=== PATIENT | female | born 1995 | race Two or more races ===

== ENCOUNTER 2020-08-24 16:45 | Emergency (ER) | payer OTHER ==
[~2020-08-24] VITALS: Ht 154.9 cm; Wt 66.9 kg
[2020-08-24] MEDS ORDERED: SODIUM CHLORIDE FLUSH 10ML SYR IVF ONE (17:00)
[2020-08-24] MEDS ORDERED: ONDANSETRON 2MG/ML, 2ML IVPush ONE (17:30)
[2020-08-24 17:32] LABS: BASOPHILS % (AUTO) 0 % (0-1); EOSINOPHILS % (AUTO) 0 % (1-7); LYMPHOCYTES % (AUTO) 6 % (22-44); MEAN CORPUSCULAR HEMOGLOBIN 31.3 pg (27.0-34.8); MEAN CORPUSCULAR HGB CONC 33.8 g/dL (32.4-35.8); MEAN PLATELET VOLUME 7.4 fL (7.4-10.4); MONOCYTES % (AUTO) 4 % (2-9); NEUTROPHILS % (AUTO) 90 % (42-75); PLATELET COUNT 325 x10^3/uL (130-400); RED BLOOD COUNT 4.67 x10^6/uL (3.82-5.3)
--- NOTE | 2020-08-24 17:50 | NUR ---
TASK RN: JARVIS COLLECTED
[2020-08-24] MEDS ORDERED: ONDANSETRON 2MG/ML, 2ML ONE (17:54)
[2020-08-24 17:59] LABS: MD SCAN
--- NOTE | 2020-08-24 18:00 | NUR ---
PT REPORTS HAVING HAD ZOFRAN AT [facility] PRIOR TO ARRIVAL HERE. REFUSING ZOFRAN AT THIS TIME.
[2020-08-24 18:03] LABS: ANION GAP 7 mmol/L (5-15); CHLORIDE 104 mmol/L (98-107)
[2020-08-24 18:04] LABS: ALANINE AMINOTRANSFERASE 14 U/L (12-78); ALKALINE PHOSPHATASE 82 U/L (45-117); BILIRUBIN,TOTAL 0.9 mg/dL (0.2-1.0); CALCIUM 9.4 mg/dL (8.5-10.1); CREATININE 0.66 mg/dL (0.55-1.02); TOTAL PROTEIN 8.2 g/dL (6.4-8.2)
[2020-08-24 18:44] LABS: MICROSCOPIC INDICATED
[2020-08-24] MEDS ORDERED: PROCHLORPERAZINE 5 MG/ML, 2ML IVPush ONE (19:00)
[2020-08-24] MEDS ORDERED: PROCHLORPERAZINE 5 MG/ML, 2ML ONE (19:00)
[2020-08-24 19:02] VITALS: BP 107/57
--- NOTE | 2020-08-24 19:53 | NUR ---
DC EDUCATION PROVIDED, PT DEMONSTRATES UNDERSTANDING. PT AMBULATED STEADILY TO DC WITH RN AND SO. SO TO TRANSPORT PT HOME.
== END 2020-08-24 19:55 | disposition home or self-care (01) ==
LOC: ED 18:33
DX: O21.8 Other vomiting complicating pregnancy (principal); Z3A.08 8 weeks gestation of pregnancy
CPT/HCPCS: 36415; 80053; 81001; 84703; 85025; 87086; 96374; 99283; J0780